=== PATIENT | male | born 1955 | race Caucasian/White ===

== ENCOUNTER → 2018-01-26 06:59 | Outpatient (CLI) | payer OTHER, SELFPAY ==
--- NOTE | 2018-01-26 07:01 | CA_ITS ---
PROCEDURE: 2-D M-mode and color Doppler study INDICATIONS FOR THE TEST: Chest pain+ COPD Heart Murmur Tobacco Smoking Palpitations+ Fatigue+ Syncope Edema Hypertension+Diabetes Mellitus Rheumatic Fever SOB+MYRICK+Obesity Hyperlipidemia+ Family History HD Additional History DIZZINESS, GERD PATIENT INFORMATION HEIGHT: 72 WEIGHT:213 GENDER: Male B/P:143/87 2-D/M-MODE INTERPRETATION: 2-D MEASUREMENTS OBSERVED VALUES IN CMS Right Ventricular Dimension (RVDd) 2.0 Interventricular Septum (Thickness)(IVsd) 1.8 Left Ventricular Internal Dimensions(LVIDd) 4.5 Left Ventricular Posterior Wall (Thickness)(LVPWd) 1.2 Aortic Root 4.0 Aortic Cusp Separation 2.6 Left Atrial Dimensions (LAD) 3.9 2D 1. Left atrium is mildly enlarged, left ventricle is normal size, mild concentric left ventricular hypertrophy, visually estimated ejection fraction 55% with no regional wall motion abnormality. 2. The right atrium and right ventricle are normal size and contractility. 3. The aortic valve is minimally thickened and fibrosed. 4. The mitral and tricuspid valve leaflets are minimally thickened. 5. The pulmonic valve is poorly visualized. 6. No significant pericardial effusion noted. DOPPLER INTERROGATION: Doppler interrogation of the aortic, mitral and tricuspid valvular presence of mild mitral and tricuspid regurgitation, tricuspid regurgitation jet velocity is inadequate for calculation of the right ventricular systolic pressure, grade 1 diastolic dysfunction seen without tissue Doppler evidence of raised left atrial pressure. CONCLUSION: 1. Mildly enlarged left atrium, normal left ventricular size, mild concentric left ventricular hypertrophy, visually estimated ejection fraction 55% with no regional wall motion abnormality, grade 1 diastolic dysfunction seen without tissue Doppler evidence of raised left atrial pressure. 2. Mild mitral and tricuspid regurgitation 3. No significant pericardial effusion noted.
--- NOTE | 2018-01-26 07:01 | NM_ITS ---
History and Indications: Chest pain, shortness of breath and family history Procedure: Patient received a 0.4 mg of intravenous Lexiscan, resting heart rate was 64 bpm resting blood pressure 143/90, with Lexiscan maximum heart rate achieved was 111 bpm, and blood pressure was 143/86. Electrocardiogram: Resting electrocardiogram showed sinus rhythm nonspecific T wave changes, with Lexiscan there is less than 1.[address] segment depression noted from the baseline EKG. The EKG portion of the Lexiscan Myoview is nondiagnostic. Cardiac stress and resting SPECT images: Cardiac stress and resting SPECT images were obtained using technetium 99 Myoview 32.2 mCi stress and 10.6 mCi at rest. Gated SPECT further analysis of segmental wall motion and calculation of the ejection fraction also done. Cardiac stress and rest SPECT images show uniform myocardial activity without segmental perfusion abnormality, computer derived ejection fraction is 64% with no regional wall motion abnormality, right ventricle is normal size and contractility. Conclusion: 1. The EKG portion of the Lexiscan Myoview is nondiagnostic. 2. No scintigraphic evidence of reversible ischemia seen, computer derived ejection fraction is 64% with no regional wall motion abnormality, right ventricle is normal size and contractility. 3. Normal Lexiscan Myoview study.
--- NOTE | 2018-01-26 07:50 | HMH.ITSHM ---
Current Home Medications as stated by this patient Rc Aguila or professional healthcare representative. []OMEPRAZOLE FLOMAX
== END ==
PROVIDERS: PCP Physician Assistant; Visit Provider Internal Medicine
DX: R06.09 Other forms of dyspnea (principal); R07.9 Chest pain, unspecified; E78.5 Hyperlipidemia, unspecified; I11.9 Hypertensive heart disease without heart failure; I73.9 Peripheral vascular disease, unspecified; K21.9 Gastro-esophageal reflux disease without esophagitis; R94.31 Abnormal electrocardiogram [ECG] [EKG]
CPT/HCPCS: 78452; 93017; 93306; A9502; J2785

== ENCOUNTER 2022-09-15 10:22 | Day surgery (SDC) | payer MEDICARE, OTHER, SELFPAY ==
[2022-09-15 11:01] VITALS: BP 165/104; PULSE 74; RESP 18; TEMP 36.1; O2SAT 97; BMI 29.2
[2022-09-15 11:59] VITALS: BP 162/94; PULSE 66; RESP 17; O2SAT 99
[2022-09-15 12:04] VITALS: BP 159/97; PULSE 62; RESP 16; O2SAT 100
[2022-09-15 12:09] VITALS: BP 151/101; PULSE 63; RESP 16; O2SAT 100
[2022-09-15 12:14] VITALS: BP 158/100; PULSE 62; RESP 16; O2SAT 100
[2022-09-15 12:22] VITALS: BP 162/92; PULSE 73; RESP 17; O2SAT 98
== END 2022-09-15 12:30 | disposition home or self-care (01) ==
PROVIDERS: Visit Provider Ophthalmology
PROC: (CPT 66982; principal; 2022-09-15 13:30)
DX: H25.812 Combined forms of age-related cataract, left eye (principal)
CPT/HCPCS: 66982; V2632

== ENCOUNTER 2022-09-29 06:07 | Day surgery (SDC) | payer MEDICARE, OTHER, SELFPAY ==
[2022-09-28 13:18] VITALS: BMI 29.0
[2022-09-29] VITALS (7 sets, daily range): BP systolic 138–159; BP diastolic 91–97; PULSE 61–70; RESP 16–18; TEMP 36.7–36.8; O2SAT 96–99
--- NOTE | 2022-09-29 07:00 | SUR.PREOP ---
Unable to scan eye drops, pharmacy and Anne Hughes RN notified.
== END 2022-09-29 08:15 | disposition home or self-care (01) ==
PROVIDERS: PCP Family Medicine; Visit Provider Ophthalmology
PROC: (CPT 66984; principal; 2022-09-29 07:30)
DX: H25.811 Combined forms of age-related cataract, right eye (principal)
CPT/HCPCS: 66984; V2632